=== PATIENT | male | born 1950 | race Caucasian/White ===

== ENCOUNTER → 2016-10-09 | Outpatient (CLI) | payer OTHER ==
--- NOTE | ~2016-10-09 | ST ---
Unit #: [id number] #: [id number] Patient: STEPHON VASQUEZ [id number] [address] [place], [place] [address] [id number] O MR#: [id number] NAME: STEPHON VASQUEZ : 1950 SEX: M STUDY DATE/TIME: UNIT: [facility] [place] ROOM: STUDY DESCRIPTION: Stress ECG Attending Physician: Basil Looney M.D. Referring Physician: Basil Looney M.D. Primary Care Physician: Servando Rodriguez M.D. CARDIOLOGY REPORT EXAM Stress ECG INDICATION Chest pain. SUMMARY The patient exercised on a Javier protocol to maximal effort. The patient completed 6 minutes 2 seconds of seconds. Heart rate increased from 58 to 140, blood pressure increased from 138/75 to 144/80. The rest and stress ECG showed no diagnostic ST shifts. There were PACs and PVCs noted, with occasional PVC couplet, both during and after exercise. There was one PVC triplet noted during exercise. There were no diagnostic ST shifts. IMPRESSION 1. Stress ECG shows no ischemia. 2. Fair exercise tolerance based on the patient's age. 3. Normal heart rate and blood pressure responses. 4. Based on this study, no change in therapy. 5. Normal study. Dictated by... Basil Looney M.D. RAMIRO/mercedes TD: 10/09/2016 10:50 JOB #: [id number] CARDIOLOGY REPORT Page 1 of 1 X Basil Looney MD CARDIOLOGY REPORT
== END | disposition home or self-care (01) ==
LOC: CEKG 08:19
DX: R01.1 Cardiac murmur, unspecified (principal); R53.83 Other fatigue; R94.31 Abnormal electrocardiogram [ECG] [EKG]
CPT/HCPCS: 93017; 93306